=== PATIENT | female | born 1995 | race Caucasian/White ===

== ENCOUNTER → 2016-04-17 08:14 | Day surgery (SDC) | payer OTHER, MEDICAID ==
[~2016-04-17 08:14] MED LIST: Acetaminophen ADULT LIQ* 650 MG/20.3 ML UDC ONE; Acetaminophen ADULT LIQ* 650 MG/20.3 ML UDC PO ONE; Bacitracin OINTMENT* 0.5% 0.5 oz TUBE ONE; Buffered Lidocaine 1% SYR 3ML* 3 ML/SYR SYRINGE INTRADERM ONE; Dexamethasone IV* 4 MG/ML 1 ML (4 MG) ONE; DiMENhydriNATE IV* 50 MG/ML VIAL IV PUSH PRN; HYDROmorphone INJ* 1 MG/ML CARPUJECT SYRINGE IV PRN; Lidocaine 2% JELLY* 6 ML JELLY TOPICAL ONE; Lidocaine 2% MPF* 2 ML VIAL ONE; Lidocaine 2.5%/Prilocain 2.5%* 5 GM TUBE ONE; Lidocaine 4% TOPICAL* 50 ML TOP.SOLN ONE; Midazolam concentrated* 5 MG/ML 1 ml VIAL ONE; Midazolam* 1 MG/ML 5 ML VIAL (5 MG) PO ONE; Ondansetron INJ* 2 MG/ML VIAL ONE; Ondansetron ODT TAB* 4 MG PO PRN; Oxymetazoline 0.05% NASAL SPR* 15 ML BTL ONE; Propofol* 10 MG/ML 20 ML BTL IV PUSH ONE; fentaNYL* 50 MCG/ML 2 ML VIAL (100 MCG VIAL) IV PRN; fentaNYL* 50 MCG/ML 2 ML VIAL (100 MCG VIAL) ONE
[2016-04-17 09:06] LABS: Manual Entry Verification AS; UR Preg Internal Control QC Line Present; UR Preg Kit Lot# 6060104
[2016-04-17 13:39] VITALS: BP 117/83
--- NOTE | 2016-04-18 02:26 | OP ---
DATE OF OPERATION: 04/17/16 - SDS DATE OF : [birth year] SURGEON: Matty Morgan MD ANESTHESIOLOGIST: Duc Perez MD ANESTHESIA: General anesthesia. PRE-OP DIAGNOSIS: Nasal telangiectasia. POST-OP DIAGNOSIS: Nasal telangiectasia. OPERATIVE PROCEDURE: KTP laser ablation of telangiectatic blood vessels on her nasal columella under general anesthesia. COMPLICATIONS: None. DISPOSITION: Good. SPECIMEN: None. BLOOD LOSS: None. DESCRIPTION OF PROCEDURE: The patient was taken to the operating room, placed in the supine position on the operating table and orotracheally intubated. Her nasal columella bilaterally was into the vestibula. Her nose was initially anesthetized with EMLA cream and then some topical lidocaine jelly. Using the KTP laser fiber at a power setting of 4.1-second burst at 0.5 second pulse, I did spot ablation of all the areas of telangiectatic vessels. These were on her columella extending on to the septum bilaterally. Some bacitracin ointment was placed at the end. The patient tolerated the procedure well with no complications, extubated uneventfully and transferred to recovery room in stable condition. [id number]/CPS #: [id number] MTDD
== END | disposition home or self-care (01) ==
LOC: OR 08:14
PROVIDERS: ATTEND Otolaryngology
DX: I78.0 Hereditary hemorrhagic telangiectasia (principal)
CPT/HCPCS: 81025; A9270-GY; J1100; J2250; J2405; J2704; J3010

== ENCOUNTER 2018-11-12 11:20 | Emergency (ER) | payer MEDICARE, MEDICAID ==
[2018-11-12 12:05] VITALS: BP 117/69
--- NOTE | 2018-11-12 12:39 | UC ---
Skin Complaint HPI - HPI Summary HPI Summary: 22 yo female with fith inner thigh redness noted days ago very little discomfort no hx MRSA no fever - History of Current Complaint Chief Complaint: UCSkin Time Seen by Provider: 11/12/18 12:11 Stated Complaint: SKIN ISSUE Hx Obtained From: Patient Hx Last Menstrual Period: depo Onset/Duration: Gradual Onset Skin Exposure Onset/Duration: Days Ago Timing: Constant Onset Severity: Mild Current Severity: Mild Pain Intensity: 3 Pain Scale Used: 0-10 Numeric Location: Other - see image Character: Swelling, Raised, Painful - tender Aggravating Factor(s): Touch Alleviating Factor(s): Nothing Associated Signs & Symptoms: Positive: Tenderness - Allergy/Home Medications Allergies/Adverse Reactions: Allergies Allergy/AdvReac Type Severity Reaction Status Date / Time No Known Allergies Allergy Verified 11/12/18 12:05 Home Medications: Home Medications Clindamycin Cap(NF) [Clindamycin Cap 300 mg Cap(NF)] 10 mg PO DAILY 11/12/18 [ History Confirmed 11/12/18] l-Norgest/E.estradiol-E.estrad [Levono-E Estrad 0.15-0.03-0.01] 11/12/18 [ History] PMH/Surg Hx/FS Hx/Imm Hx - Additional Past Medical History Additional PMH: mild MR Previously Healthy: Yes - Surgical History Surgical History: Yes - Family History Known Family History: Positive: Hypertension - Social History Alcohol Use: None Substance Use Type: None Smoking Status (MU): Never Smoked Tobacco Have You Smoked in the Last Year: No - Immunization History Most Recent Influenza Vaccination: 02/11/17 Most Recent Pneumonia Vaccination: unknown Review of Systems All Other Systems Reviewed And Are Negative: Yes Constitutional: Positive: Negative Skin: Positive: Negative Eyes: Positive: Negative ENT: Positive: Negative Respiratory: Positive: Negative Cardiovascular: Positive: Negative Gastrointestinal: Positive: Negative Genitourinary: Positive: Negative Motor: Positive: Negative Neurovascular: Positive: Negative Musculoskeletal: Positive: Negative Neurological: Positive: Negative Psychological: Positive: Negative Physical Exam Triage Information Reviewed: Yes Appearance: Well-Appearing, No Pain Distress, Well-Nourished Vital Signs: Initial Vital Signs Temp 98 F 11/12/18 11:59 Pulse 62 11/12/18 11:59 Resp 17 11/12/18 11:59 BP 117/69 11/12/18 11:59 Pulse Ox 100 11/12/18 11:59 Vital Signs Reviewed: Yes Eyes: Positive: Conjunctiva Clear ENT: Positive: Hearing grossly normal. Negative: Nasal congestion, Nasal drainage, Trismus, Muffled voice, Dental tenderness Neck: Positive: Supple, Nontender, No Lymphadenopathy Respiratory: Positive: Lungs clear, Normal breath sounds, No respiratory distress, No accessory muscle use Cardiovascular: Positive: RRR, No Murmur Musculoskeletal: Positive: ROM Intact, No Edema Neurological: Positive: Alert Psychological Exam: Normal Skin Exam: Other - see image Images Perineum Female: 1 - pustule -? ingrown hair 2 - erthyema Course/Dx - Diagnoses Provider Diagnosis: Cellulitis, Pustule Discharge - Sign-Out/Discharge Documenting (check all that apply): Patient Departure All imaging exams completed and their final reports reviewed: No Studies - Discharge Plan Condition: Stable Disposition: HOME Prescriptions: DOXYcycline CAP(*) [DOXYcycline 100MG CAP(*)] 100 mg PO BID #14 cap Patient Education Materials: Cellulitis (ED) Referrals: Christina Robertson MD [Primary Care Provider] - 2 Days (recheck in 2-3 days if not better) Additional Instructions: warm soapy compressed 3-4 x day for 20 minutes don't squeeze recheck for new or worsening symptoms this may turn into an abscess that needs incision and drainage recheck in 2-3 days - Billing Disposition and Condition Condition: STABLE Disposition: Home
== END 2018-11-12 12:53 | disposition home or self-care (01) ==
LOC: UCEAST 11:20
DX: L03.115 Cellulitis of right lower limb (principal); L08.0 Pyoderma
CPT/HCPCS: 99212; G0463